=== PATIENT | male | born 1970 | race Hispanic/Latino ===

== ENCOUNTER 2016-11-07 07:20 | Outpatient (CLI) | payer BC ==
--- NOTE | 2016-11-10 09:51 | PET Report ---
PET/CT:11/07/16 07:20:00 CLINICAL: Pulmonary nodule. RADIOPHARMACEUTICAL: 11.4mCi F18-FDG. COMPARISON: None. TECHNIQUE- Following intravenous injection of F-18 FDG and an approximately 60 minute uptake period, CT and PET images from the mid skull to the upper thighs were acquired with the patient in the fasted state. No contrast was administered. The CT protocol used for this PET CT study is designed for attenuation correction and anatomic localization of PET abnormalities. This silver recovery operator CT is not desired to produce and cannot replace, [id number] diagnostic CT scans with specific imaging protocols for different body parts and indications. Plasma glucose at the time of this test: 105g/dl. The standardized uptake values (SUV) are normalized to patient body weight and indicate the highest activity concentration (SUV max) in a given disease site. FINDINGS: Brain--Physiologic FDG uptake in the visualized regions of the brain. Neck--Physiologic FDG uptake . Chest--Physiologic FDG uptake in mediastinal blood pool and myocardium. Lungs--No abnormal uptake. An oval smooth non-FDG avid left lower lobe lung nodule measures 1.8 x 1.6 cm and 43 Hounsfield units in density. The adjacent lung is more lucent than the rest of the lung and there is a 2.8 x 1.8 cm air-filled cavity slightly superior to the nodule area no other lung nodule or mass. No pleural effusion. Normal heart, aorta and pulmonary arteries. There is a large volume of epicardial fat which may simulate cardiomegaly on chest x-ray. Pleura/pericardium--No abnormal uptake. Thoracic nodes--No abnormal uptake. Hepatobiliary--No abnormal uptake. Liver background SUV mean, as a reference for comparing FDG studies, is 3.7 . No liver mass. Normal gallbladder and bile ducts. Spleen--No abnormal uptake. Pancreas--No abnormal uptake. Adrenal Glands--No abnormal uptake. Kidneys/Ureters/Bladder--No abnormal uptake. Urinary bladder is minimally distended with relatively thick wall. The prostate is normal size. Abdominopelvic Nodes--No abnormal uptake. Bowel/Peritoneum/Mesentery--No abnormal uptake. Pelvic organs--No abnormal uptake. Bones/Soft Tissues--Focal FDG uptake in the L4 vertebral body with SUV 4.2 and no bone lesion on CT. IMPRESSION- 1. A non-FDG avid 1.8 cm left lower lobe lung nodule. Recommend CT chest with contrast to exclude aneurysm if biopsy is contemplated since the density measurement is close to that of blood. 2. An adjacent 2.8 cm cavitation versus bulla of the left lower lobe. 3. Probably benign focal FDG uptake in the L4 vertebral body.
== END 2016-11-07 07:21 | disposition home or self-care (01) ==
LOC: PET 07:20
PROVIDERS: ATTEND Specialist
DX: R91.1 Solitary pulmonary nodule (principal); N32.89 Other specified disorders of bladder
CPT/HCPCS: 78815; 82962; A9552